=== PATIENT | female | born 1935 | race Caucasian/White ===

== ENCOUNTER → 2018-08-15 | Outpatient (CLI) | payer OTHER, MEDICARE ==
[~2018-08-15] MED LIST: AMITRIPTYLINE H10 M3 PO; ANTI-ITCH28.4 GM; CITRACAL-VIT D1 EACH PO; DIOVAN HCT 80-1 EACH PO; FLONASE 0.05%50 MCG NASAL; FLOVENT HFA 2220 MC1 INH; IRON325 M1 PO; LEVAQUIN 500 M500 M4 PO; MELATONIN3 MG PO; MOBIC15 MG PO; MUCINEX TA600 MG/TA2 PO; NEURONTIN600 MG PO; PROBIOTIC1 EAC2 PO; PROTONIX40 M1 PO; TYLENOL325 MG PO; ZOCOR80 MG PO; ZOLOFT50 MG PO; ZYRTEC10 M2 PO
== END ==
LOC: RAD 01:59
DX: Z12.31 Encounter for screening mammogram for malignant neoplasm of breast (principal)

== ENCOUNTER 2018-11-19 19:56 | Emergency (ER) | payer OTHER, MEDICARE ==
[~2018-11-19] VITALS: Ht 157.5 cm; Wt 72.6 kg
[2018-11-19] MEDS ORDERED: CENTRUM SILVER1 EAC4 PO (20:53)
[2018-11-19] MEDS ORDERED: PROBIOTIC1 EAC1 PO (20:53)
[2018-11-19 21:11] LABS: ABSOLUTE NEUTROPHILS 4.5 thou/uL (1.4-8.2); BASOPHILS 0.9 % (0.0-2.0); EOSINOPHILS 1.6 % (0.0-3.0); HEMATOCRIT 39.2 % (37.0-47.0); HEMOGLOBIN 13.6 gm/dL (12.0-15.0); LYMPHOCYTES 19.9 % (24.0-44.0); MCH 31.7 pg (26.0-34.0); MCHC 34.8 g/dL (28.0-37.0); MCV 91.2 fL (80.0-100.0); MONOCYTES 6.8 % (1.0-8.0); PLATELET COUNT 193 thou/uL (150-400); POLYS 70.8 % (36.0-66.0); RDW 13.4 % (10.5-14.5); WBC 6.3 thou/uL (4.0-11.0)
[2018-11-19 21:16] LABS: CALCIUM 9.7 mg/dL (8.5-10.1); CREATININE 0.9 mg/dL (0.6-1.0); POTASSIUM 3.4 mmol/L (3.5-5.1)
[2018-11-19 21:35] VITALS: BP 147/77
== END 2018-11-19 21:35 | disposition home or self-care (01) ==
LOC: ER 19:56
PROVIDERS: Emergency Medicine
DX: J06.9 Acute upper respiratory infection, unspecified (principal); R19.7 Diarrhea, unspecified; I10 Essential (primary) hypertension; F32.9 Major depressive disorder, single episode, unspecified; F41.9 Anxiety disorder, unspecified; K21.9 Gastro-esophageal reflux disease without esophagitis; M46.90 Unspecified inflammatory spondylopathy, site unspecified; Z87.891 Personal history of nicotine dependence; Z88.8 Allergy status to other drugs, medicaments and biological substances; Z90.710 Acquired absence of both cervix and uterus; Z90.49 Acquired absence of other specified parts of digestive tract; Z86.2 Personal history of diseases of the blood and blood-forming organs and certain disorders involving the immune mechanism; Z96.651 Presence of right artificial knee joint

== ENCOUNTER → 2019-08-21 | Outpatient (CLI) | payer OTHER, MEDICARE ==
[~2019-08-21] MED LIST changes: +CENTRUM SILVER1 EAC4 PO; +PROBIOTIC1 EAC1 PO
== END ==
LOC: RAD 10:22
DX: Z12.31 Encounter for screening mammogram for malignant neoplasm of breast (principal)

== ENCOUNTER 2020-05-25 20:07 | Emergency (ER) | payer OTHER, MEDICARE ==
[~2020-05-25] VITALS: Ht 160 cm; Wt 78.9 kg
[2020-05-25] MEDS ORDERED: ATIVAN1 M1 PO (21:31)
[2020-05-25 22:00] VITALS: BP 128/65
== END 2020-05-25 22:03 | disposition home or self-care (01) ==
LOC: ER 20:07
DX: F41.9 Anxiety disorder, unspecified (principal); I10 Essential (primary) hypertension; K21.9 Gastro-esophageal reflux disease without esophagitis; M19.90 Unspecified osteoarthritis, unspecified site; Z90.49 Acquired absence of other specified parts of digestive tract; Z90.711 Acquired absence of uterus with remaining cervical stump; Z90.89 Acquired absence of other organs; Z98.890 Other specified postprocedural states; Z79.899 Other long term (current) drug therapy; Z87.891 Personal history of nicotine dependence

== ENCOUNTER → 2020-10-16 | Outpatient (CLI) | payer OTHER, MEDICARE ==
[~2020-10-16] MED LIST changes: +ATIVAN1 M1 PO
== END ==
LOC: LAB 14:20
PROVIDERS: ATTEND Neuromusculoskeletal Medicine & OMM
DX: Z20.828 Contact with and (suspected) exposure to other viral communicable diseases (principal)

== ENCOUNTER → 2020-10-17 | Outpatient (CLI) | payer OTHER, MEDICARE ==
[2020-10-17 10:14] LABS: CREATININE 1.3 mg/dL (0.6-1.0)
== END ==
LOC: CAT 09:46
PROVIDERS: ATTEND Colon & Rectal Surgery
DX: K44.9 Diaphragmatic hernia without obstruction or gangrene (principal); N32.89 Other specified disorders of bladder; K62.89 Other specified diseases of anus and rectum; M43.17 Spondylolisthesis, lumbosacral region; M47.817 Spondylosis without myelopathy or radiculopathy, lumbosacral region; M25.78 Osteophyte, vertebrae; I70.0 Atherosclerosis of aorta; R50.9 Fever, unspecified

== ENCOUNTER → 2020-10-27 | Outpatient (CLI) | payer OTHER, MEDICARE | LOC: RAD 12:43 | PROVIDERS: ATTEND Neuromusculoskeletal Medicine & OMM | DX: Z12.31 Encounter for screening mammogram for malignant neoplasm of breast (principal) ==

== ENCOUNTER 2020-12-30 18:19 | Emergency (ER) | payer OTHER, MEDICARE ==
[~2020-12-30] VITALS: Ht 162.6 cm; Wt 81.7 kg
[2020-12-30 20:42] VITALS: BP 188/82
== END 2020-12-30 20:45 | disposition home or self-care (01) ==
LOC: ER 18:19
DX: S61.210A Laceration without foreign body of right index finger without damage to nail, initial encounter (principal); I10 Essential (primary) hypertension; K21.9 Gastro-esophageal reflux disease without esophagitis; Z86.2 Personal history of diseases of the blood and blood-forming organs and certain disorders involving the immune mechanism; Z90.710 Acquired absence of both cervix and uterus; Z90.49 Acquired absence of other specified parts of digestive tract; Z90.89 Acquired absence of other organs; Z79.899 Other long term (current) drug therapy; Z87.891 Personal history of nicotine dependence; Z88.8 Allergy status to other drugs, medicaments and biological substances; W26.8XXA Contact with other sharp object(s), not elsewhere classified, initial encounter; Y93.89 Activity, other specified; Y92.89 Other specified places as the place of occurrence of the external cause; Y99.8 Other external cause status

== ENCOUNTER 2021-01-18 05:32 | Emergency (ER) | payer OTHER, MEDICARE ==
[~2021-01-18] VITALS: Ht 157.5 cm; Wt 72.6 kg
[2021-01-18 06:54] LABS: URINE BILIRUBIN NEGATIVE (Negative); URINE BLOOD NEGATIVE (Negative); URINE CLARITY CLEAR; URINE COLOR YELLOW; URINE GLUCOSE-RANDOM* NEGATIVE (Negative); URINE KETONES NEGATIVE (Negative); URINE LEUKOCYTES-REFLEX 1+ (Negative); URINE NITRITE-REFLEX NEGATIVE (Negative); URINE PROTEIN (DIPSTICK) NEGATIVE (Negative); URINE UROBILINOGEN 0.2 E.U./dl (0.2-1.0)
[2021-01-18 07:03] LABS: CASTS None Seen /LPF (None Seen); SQUAMOUS 4-10 Moderate /LPF (0-3)
[2021-01-18 07:04] LABS: BACTERIA-REFLEX None Seen /HPF (None Seen); CRYSTALS None Seen /LPF (None Seen); URINE RBC None Seen /HPF (0-2); URINE WBC-REFLEX 0-5 Rare /HPF (0-5)
[2021-01-18 07:14] LABS: ABSOLUTE NEUTROPHILS 3.4 thou/uL (1.4-8.2); BASOPHILS 1.2 % (0.0-2.0); EOSINOPHILS 2.8 % (0.0-3.0); HEMATOCRIT 38.9 % (37.0-47.0); HEMOGLOBIN 13.2 gm/dL (12.0-15.0); LYMPHOCYTES 25.5 % (24.0-44.0); MCH 31.2 pg (26.0-34.0); MCHC 33.9 g/dL (28.0-37.0); MCV 92.1 fL (80.0-100.0); MONOCYTES 8.8 % (1.0-8.0); PLATELET COUNT 195 thou/uL (150-400); POLYS 61.7 % (36.0-66.0); RBC 4.23 mil/uL (4.20-5.00); RDW 13.4 % (10.5-14.5); WBC 5.5 thou/uL (4.0-11.0)
[2021-01-18 07:55] LABS: CALCIUM 9.9 mg/dL (8.5-10.1); CREATININE 1.1 mg/dL (0.6-1.0); POTASSIUM 3.5 mmol/L (3.5-5.1)
[2021-01-18 08:01] LABS: ALBUMIN 4.6 g/dL (3.4-5.0); DIRECT BILIRUBIN 0.2 mg/dL (<0.1-0.2); TOTAL BILIRUBIN 0.8 mg/dL (0.2-1.0); TOTAL PROTEIN 7.8 g/dL (6.4-8.2)
[2021-01-18] MEDS ORDERED: FLEXERIL PO (10:22)
[2021-01-18 12:12] VITALS: BP 110/56
== END 2021-01-18 12:10 | disposition home or self-care (01) ==
LOC: ER 05:32
PROVIDERS: Emergency Medicine
DX: M54.6 Pain in thoracic spine (principal); I10 Essential (primary) hypertension; K21.9 Gastro-esophageal reflux disease without esophagitis; Z86.2 Personal history of diseases of the blood and blood-forming organs and certain disorders involving the immune mechanism; Z90.49 Acquired absence of other specified parts of digestive tract; Z90.89 Acquired absence of other organs; Z90.710 Acquired absence of both cervix and uterus; Z79.899 Other long term (current) drug therapy; Z87.891 Personal history of nicotine dependence; Z88.1 Allergy status to other antibiotic agents; Z88.8 Allergy status to other drugs, medicaments and biological substances

== ENCOUNTER → 2021-01-28 | Outpatient (CLI) | payer OTHER, MEDICARE ==
[~2021-01-28] MED LIST changes: +FLEXERIL PO
== END ==
LOC: MRI 08:44
PROVIDERS: ATTEND Neuromusculoskeletal Medicine & OMM
DX: M47.814 Spondylosis without myelopathy or radiculopathy, thoracic region (principal)

== ENCOUNTER 2021-02-07 08:59 | Emergency (ER) | payer OTHER, MEDICARE ==
[~2021-02-07] VITALS: Ht 157.5 cm; Wt 79.8 kg
[2021-02-07 10:04] LABS: ABSOLUTE NEUTROPHILS 4.4 thou/uL (1.4-8.2); BASOPHILS 0.7 % (0.0-2.0); EOSINOPHILS 2.1 % (0.0-3.0); HEMATOCRIT 37.4 % (37.0-47.0); HEMOGLOBIN 12.8 gm/dL (12.0-15.0); LYMPHOCYTES 15.1 % (24.0-44.0); MCH 31.4 pg (26.0-34.0); MCHC 34.2 g/dL (28.0-37.0); MCV 91.8 fL (80.0-100.0); MONOCYTES 9.8 % (1.0-8.0); PLATELET COUNT 159 thou/uL (150-400); POLYS 72.3 % (36.0-66.0); RBC 4.07 mil/uL (4.20-5.00); RDW 13.4 % (10.5-14.5); WBC 6.2 thou/uL (4.0-11.0)
[2021-02-07 10:14] LABS: CALCIUM 9.7 mg/dL (8.5-10.1); CREATININE 1.1 mg/dL (0.6-1.0)
[2021-02-07 10:20] LABS: ALBUMIN 4.2 g/dL (3.4-5.0); TOTAL BILIRUBIN 0.7 mg/dL (0.2-1.0); TOTAL PROTEIN 7.3 g/dL (6.4-8.2)
[2021-02-07 11:45] VITALS: BP 126/67
== END 2021-02-07 11:45 | disposition home or self-care (01) ==
LOC: ER 08:59
PROVIDERS: Emergency Medicine
DX: R19.7 Diarrhea, unspecified (principal); T36.1X5A Adverse effect of cephalosporins and other beta-lactam antibiotics, initial encounter; I10 Essential (primary) hypertension; K21.9 Gastro-esophageal reflux disease without esophagitis; Z88.1 Allergy status to other antibiotic agents; Z88.8 Allergy status to other drugs, medicaments and biological substances; Z87.891 Personal history of nicotine dependence; Y92.89 Other specified places as the place of occurrence of the external cause

== ENCOUNTER → 2021-03-11 | Outpatient (CLI) | payer OTHER, MEDICARE ==
[~2021-03-11] VITALS: Ht 157.5 cm; Wt 74.8 kg
[~2021-03-11] MED LIST changes: +COZAAR 25 MG TA25 M1 PO; +KLOR-CON 10 ER10 MEQ PO; +LORAZEPAM 0.50.5 MG PO; +PROTONIX40 M4 PO
--- NOTE | 2021-03-16 14:07 | PATH ---
[facility] [place] [address] PATHOLOGY RPT PROCEDURE Name: NEREYDA SWANN Room #: REG ROMINADonnie Spangler#: [id number] Admission: 03/11/21 Date of : 39 Discharge: Report #: [id number] Path Case #: [id number] [facility] Accession Number: [id number] . 01 Material submitted: . PART A: duodenum - DUODENAL BX R/O SPRUE PART B: gastrointestinal site - GASTRIC BX-PREVIOUS HX H PYLORI (TREATED) . 01 Clinical history: . EGD NAUSEA, VOMITING,DYSPHAGIA . 02 Diagnosis: A. Small bowel mucosa, duodenum, rule out sprue, endoscopic biopsy: - No diagnostic abnormalities present. - Negative for villous blunting or increase in intraepithelial lymphocytes. . B. Gastric mucosa, gastric previous H. pylori (treated), endoscopic biopsy: - Mild reactive gastropathy. - Negative for intestinal metaplasia or atrophy. - Negative for Helicobacter pylori (properly controlled immunohistochemical stain performed). (IUV:pit; 03/13/2021) QTP 03/13/2021 1224 Local . 02 Electronically signed: . Norah Potts MD, Pathologist NPI- [id number] . 01 Gross description: . A. The specimen is received in formalin, labeled "Nereyda Swann, duodenal biopsy rule out sprue" received as multiple fragments of soft guerrero tissue measuring up to 0.3 cm. Entirely submitted in A1. . B. The specimen is received in formalin, labeled "Nereyda Swann, gastric biopsy" received as 2 fragments of soft guerrero tissue measuring up to 0.4 cm. Entirely submitted in B1. ([facility]; 03/12/2021) . MARISELA/MARISELA 03/12/2021 2003 Local . 02 Pathologist provided ICD-10: K31.9, R11.2, R13.10 . 02 CPT . [address] [address] PATHOLOGY RPT PROCEDURE Name: NEREYDA SWANN DENISE Room #: REG CL Wong.#: [id number] Admission: 03/11/21 Date of : 39 Discharge: Report #: [id number] Path Case #: [id number] Specimen Comment: A courtesy copy of this report has been sent to [phone], [phone] Specimen Comment: [id number] Specimen Comment: Report sent to / DR FLORES Specimen Comment: A duplicate report has been generated due to demographic updates. Performed at: [address], [place] [id number] MD Erwin Bolivar MD Phone: [phone] Performed at: [address] [id number] MD Norah Potts MD Phone: [phone]
--- NOTE | 2021-03-16 15:04 | P ---
[facility] [place] [address] [place] [address] PROCEDURE REPORT Name: SYLVIA DAVIS DENISE Room #: REG RISHI Spangler#: [id number] Admission: 03/11/21 Attend Phys: Francisco Tam Discharge: Date of : 39 Report #: [id number] THIS REPORT FOR: cc: Josue Fine,Francisco Brothers MD ~ DOC #: [id number] cc: MD Francisco Hanna MD DATE OF SERVICE: 03/11/2021 PROCEDURE PERFORMED: Upper endoscopy with biopsies and esophageal dilation. HISTORY OF PRESENT ILLNESS: The patient is an 85-year-old female with a history of gastroesophageal reflux disease. She has been taking Protonix 40 mg on a daily basis. Despite that, she gets a chronic cough, hoarseness at times, also sputum production. Apparently, pulmonary workup was negative. She also complains of intermittent reflux and heartburn. Therefore, Protonix was increased to b.i.d. approximately 1 month ago with some improvement in her symptoms. She also complains of dysphagia. She has undergone a dilation in the past by my partner. She also reportedly has a history of H. pylori that was treated in the past. Plan is for upper endoscopy. DESCRIPTION OF PROCEDURE: The risks and benefits of the procedure were explained to the patient, those risks including but not limited to bleeding, perforation and the risk of sedation. She understood these risks and gave informed consent. Sedation was given using propofol per anesthesia. Next, using a standard Olympus upper endoscope, the scope was placed in the patient's mouth and advanced under direct vision through the esophagus, stomach and into the second portion of the duodenum. The larynx was normal in appearance. The upper and mid esophagus was normal. In the distal esophagus at the GE junction, a mild Schatzki's ring was noted. Upon entering the stomach, a small hiatal hernia was noted. Overall, the gastric mucosa was normal. The pylorus was normal and patent. Random biopsies were obtained to rule out H. pylori. The duodenal bulb, first and second portion were all normal. Biopsies were obtained to rule out the possibility of celiac sprue as the patient has intermittent nausea as well. The scope was then brought back up into the patient's stomach and a Savary guidewire was inserted through the scope, leaving the guidewire in place as the scope was then withdrawn. Next, a 51-Maced[place] Savary dilation was then performed of the esophagus without difficulty. The wire and dilator removed. The scope was reintroduced into the patient's stomach. There was no evidence of mucosal tear after dilation. The scope was then withdrawn and the procedure terminated. The patient tolerated the procedure well. IMPRESSION: [facility] [address] [place] [address] PROCEDURE REPORT Name: SYLVIA DAVIS Room #: REG RISHI Spangler#: [id number] Admission: 03/11/21 Attend Phys: Francisco Tam Discharge: Date of : 39 Report #: [id number] 1. Mild Schatzki's ring. 2. Small hiatal hernia. 3. Otherwise, normal upper endoscopy. RECOMMENDATIONS: 1. Await biopsy results. 2. Continue b.i.d. PPI therapy for at least 4-6 months to see if improvement in her chronic cough. 3. Observe the patient post-dilation. Thank you for allowing me to participate in her care. Francisco Ellis MD [facility] <ELECTRONICALLY SIGNED> By: Francisco Ellis MD 03/16/21 1504 1055 2044 Francisco Ellis MD /nt
== END | disposition home or self-care (01) ==
LOC: GI 09:32
PROVIDERS: ATTEND Specialist
DX: R13.10 Dysphagia, unspecified (principal); R12 Heartburn; K31.9 Disease of stomach and duodenum, unspecified; K22.2 Esophageal obstruction; K44.9 Diaphragmatic hernia without obstruction or gangrene; K21.9 Gastro-esophageal reflux disease without esophagitis; I10 Essential (primary) hypertension; E78.5 Hyperlipidemia, unspecified; J43.9 Emphysema, unspecified; D64.9 Anemia, unspecified; F32.9 Major depressive disorder, single episode, unspecified; F41.9 Anxiety disorder, unspecified; Z98.890 Other specified postprocedural states; Z79.899 Other long term (current) drug therapy; Z87.891 Personal history of nicotine dependence; Z90.49 Acquired absence of other specified parts of digestive tract; Z90.710 Acquired absence of both cervix and uterus; Z96.653 Presence of artificial knee joint, bilateral; Z88.8 Allergy status to other drugs, medicaments and biological substances
CPT/HCPCS: 62110; 62900